=== PATIENT | female | born 1955 | race Caucasian/White ===

== ENCOUNTER → 2017-10-16 | Outpatient (CLI) | payer OTHER ==
[2017-10-16 09:21] LABS: EOS # 0.1 (0.04-0.40); EOS % 2.3 % (1.0-5.0); HEMATOCRIT 38.2 % (37.0-47.0); HEMOGLOBIN 12.3 g/dL (12.5-16.0); LYMPH# 1.6 (1.50-4.00); MEAN CELL VOLUME 80 fl (78-100); MEAN CORPUSCULAR HEMOGLOBIN 26 pg (27-31); MEAN CORPUSCULAR HGB CONC 32 g/dL (33-37); MEAN PLATELET VOLUME 8.9 fl (7.4-10.4); MONO # 0.5 (0.20-0.80); NEU # 2.9 (1.40-6.50); PLATELET COUNT 265 K/mm3 (130-400); RED BLOOD COUNT 4.75 M/mm3 (4.10-5.30); RED CELL DISTRIBUTION WIDTH 15.4 % (11.5-14.5); WHITE BLOOD COUNT 5.1 K/mm3 (4.8-10.8)
== END ==
LOC: LAB 09:04
PROVIDERS: Nurse Practitioner Family
DX: Z00.00 Encounter for general adult medical examination without abnormal findings (principal); Z13.220 Encounter for screening for lipoid disorders; Z23 Encounter for immunization; Z12.31 Encounter for screening mammogram for malignant neoplasm of breast

== ENCOUNTER → 2017-10-29 | Day surgery (SDC) | payer OTHER | LOC: MSO 08:04 | DX: Z12.11 Encounter for screening for malignant neoplasm of colon (principal); D12.3 Benign neoplasm of transverse colon; K63.5 Polyp of colon | CPT/HCPCS: 00811; J2704; J7120 ==

== ENCOUNTER → 2017-11-06 | Outpatient (CLI) | payer OTHER | LOC: MAMMO 14:30 | DX: Z12.31 Encounter for screening mammogram for malignant neoplasm of breast (principal) ==

== ENCOUNTER → 2019-01-02 | Outpatient (CLI) | payer BC ==
[2019-01-02 07:18] LABS: EOS # 0.1 (0.04-0.40); EOS % 1.3 % (1.0-5.0); HEMATOCRIT 40.6 % (37.0-47.0); HEMOGLOBIN 13.7 g/dL (12.5-16.0); LYMPH# 2.1 (1.50-4.00); MEAN CELL VOLUME 85 fl (78-100); MEAN CORPUSCULAR HEMOGLOBIN 29 pg (27-31); MEAN CORPUSCULAR HGB CONC 34 g/dL (33-37); MEAN PLATELET VOLUME 9.4 fl (7.4-10.4); MONO # 0.6 (0.20-0.80); PLATELET COUNT 298 K/mm3 (130-400); RED BLOOD COUNT 4.78 M/mm3 (4.10-5.30); RED CELL DISTRIBUTION WIDTH 13.4 % (11.5-14.5); WHITE BLOOD COUNT 6.8 K/mm3 (4.8-10.8)
[2019-01-02 07:27] LABS: POTASSIUM 3.7 mmol/L (3.5-5.1)
[2019-01-02 07:30] LABS: TOTAL PROTEIN 7.3 g/dL (6.2-8.1)
[2019-01-02 07:32] LABS: TOTAL BILIRUBIN 0.9 mg/dL (0.2-1.2)
== END ==
LOC: MAMMO 07:04
PROVIDERS: Physician Assistant
DX: Z00.00 Encounter for general adult medical examination without abnormal findings (principal); Z12.31 Encounter for screening mammogram for malignant neoplasm of breast; Z13.820 Encounter for screening for osteoporosis; Z85.828 Personal history of other malignant neoplasm of skin; Z83.49 Family history of other endocrine, nutritional and metabolic diseases

== ENCOUNTER → 2019-03-24 | Outpatient (CLI) | payer BC ==
[2019-03-24 14:56] LABS: EOS # 0.1 (0.04-0.40); EOS % 0.9 % (1.0-5.0); HEMATOCRIT 41.6 % (37.0-47.0); LYMPH# 2.3 (1.50-4.00); MEAN CELL VOLUME 88 fl (78-100); MEAN CORPUSCULAR HEMOGLOBIN 30 pg (27-31); MEAN CORPUSCULAR HGB CONC 34 g/dL (33-37); MONO # 0.5 (0.20-0.80); PLATELET COUNT 309 K/mm3 (130-400); RED BLOOD COUNT 4.73 M/mm3 (4.10-5.30); RED CELL DISTRIBUTION WIDTH 12.9 % (11.5-14.5); WHITE BLOOD COUNT 7.8 K/mm3 (4.8-10.8)
[2019-03-24 15:03] LABS: POTASSIUM 3.9 mmol/L (3.5-5.1)
[2019-03-24 15:04] LABS: CALCIUM 9.6 mg/dL (8.3-10.5)
[2019-03-24 15:29] LABS: URINE APPEARANCE HAZY; URINE COLOR YELLOW
[2019-03-24 15:30] LABS: URINE BILIRUBIN NEGATIVE (NEGATIVE); URINE BLOOD TRACE (NEGATIVE); URINE GLUCOSE NEGATIVE (NEGATIVE); URINE KETONE NEGATIVE (NEGATIVE); URINE LEUKOCYTE ESTERASE 2+ (NEGATIVE); URINE NITRATE NEGATIVE (NEGATIVE); URINE PROTEIN(semi-quant) TRACE mg/dL (NEGATIVE); URINE UROBILINOGEN NORMAL (NORMAL)
[2019-03-24 15:31] LABS: URINE MUCUS PRESENT (NOT PRESENT)
== END ==
LOC: LAB 14:39
PROVIDERS: Family Medicine
DX: K63.89 Other specified diseases of intestine (principal); R10.31 Right lower quadrant pain; R11.2 Nausea with vomiting, unspecified; R82.90 Unspecified abnormal findings in urine
CPT/HCPCS: Q9967

== ENCOUNTER → 2020-01-20 | Outpatient (CLI) | payer BC ==
[2020-01-20 08:59] LABS: EOS # 0.2 (0.04-0.40); EOS % 3.6 % (1.0-5.0); HEMATOCRIT 41.3 % (37.0-47.0); HEMOGLOBIN 13.8 g/dL (12.5-16.0); LYMPH# 1.7 (1.50-4.00); MEAN CELL VOLUME 88 fl (78-100); MEAN CORPUSCULAR HEMOGLOBIN 29 pg (27-31); MEAN CORPUSCULAR HGB CONC 33 g/dL (33-37); MEAN PLATELET VOLUME 9.2 fl (7.4-10.4); MONO # 0.5 (0.20-0.80); NEU # 3.3 (1.40-6.50); PLATELET COUNT 285 K/mm3 (130-400); RED BLOOD COUNT 4.69 M/mm3 (4.10-5.30); RED CELL DISTRIBUTION WIDTH 13.5 % (11.5-14.5); WHITE BLOOD COUNT 5.8 K/mm3 (4.8-10.8)
[2020-01-20 09:12] LABS: ALBUMIN 4.3 g/dL (3.4-4.8); POTASSIUM 4.3 mmol/L (3.5-5.1)
[2020-01-20 09:15] LABS: TOTAL PROTEIN 7.1 g/dL (6.2-8.1)
[2020-01-20 09:16] LABS: TOTAL BILIRUBIN 0.5 mg/dL (0.2-1.2)
== END ==
LOC: MAMMO 08:48
PROVIDERS: Physician Assistant
DX: Z00.00 Encounter for general adult medical examination without abnormal findings (principal); Z12.31 Encounter for screening mammogram for malignant neoplasm of breast; Z13.220 Encounter for screening for lipoid disorders; Z85.828 Personal history of other malignant neoplasm of skin

== ENCOUNTER → 2021-02-08 | Outpatient (CLI) | payer BC | LOC: MAMMO 10:45 | DX: Z12.31 Encounter for screening mammogram for malignant neoplasm of breast (principal) ==

== ENCOUNTER → 2021-02-09 | Outpatient (CLI) | payer BC ==
[2021-02-09 07:07] LABS: BASO # 0.03 (0.02-0.10); EOS # 0.19 (0.04-0.40); EOS % 3.9 % (1.0-5.0); HEMATOCRIT 33.3 % (37.0-47.0); HEMOGLOBIN 10.3 g/dL (12.5-16.0); LYMPH# 1.91 (1.50-4.00); MEAN CELL VOLUME 77 fl (78-100); MEAN CORPUSCULAR HEMOGLOBIN 24 pg (27-31); MEAN CORPUSCULAR HGB CONC 31 g/dL (33-37); MEAN PLATELET VOLUME 8.4 fl (7.4-10.4); MONO # 0.46 (0.20-0.80); NEU # 2.23 (1.40-6.50); PLATELET COUNT 290 K/mm3 (130-400); RED BLOOD COUNT 4.35 M/mm3 (4.10-5.30); RED CELL DISTRIBUTION WIDTH 14.9 % (11.5-14.5); WHITE BLOOD COUNT 4.8 K/mm3 (4.8-10.8)
[2021-02-09 07:42] LABS: POTASSIUM 3.9 mmol/L (3.5-5.1)
[2021-02-09 07:45] LABS: TOTAL PROTEIN 6.5 g/dL (6.2-8.1)
[2021-02-09 07:47] LABS: TOTAL BILIRUBIN 0.5 mg/dL (0.2-1.2)
== END ==
LOC: LAB 06:50
PROVIDERS: Physician Assistant
DX: Z00.00 Encounter for general adult medical examination without abnormal findings (principal); E78.5 Hyperlipidemia, unspecified

== ENCOUNTER → 2023-01-15 | Day surgery (SDC) | payer MEDICARE, BC | END | disposition home or self-care (01) | LOC: MSO 09:41 | DX: Z12.11 Encounter for screening for malignant neoplasm of colon (principal); Z86.010 Personal history of colon polyps | CPT/HCPCS: G0105; 00812; J2704; J7120 ==

== ENCOUNTER → 2024-01-01 | Outpatient (CLI) | payer MEDICARE, BC | LOC: MAMMO 10:54 | DX: Z12.31 Encounter for screening mammogram for malignant neoplasm of breast (principal) ==